=== PATIENT | male | born 1960 | race Caucasian/White ===

== ENCOUNTER 2023-11-10 21:20 | Inpatient (IN) | payer OTHER ==
[~2023-11-10] VITALS: Ht 180.3 cm; Wt 86.3 kg
[2023-11-10 21:24] VITALS: BP_SYST 128; PULSE 81; RESP 18; TEMP 98; O2SAT 95
[2023-11-10] MEDS ORDERED: PIPERACILLIN/TAZOBACTAM 3.375 GM/VIAL (ZOSYN) IV ONE (21:50)
[2023-11-10] MEDS: HYDROmorphone 1 MG/ML INJ. CARTRIDGE IVP ONE (21:51)
[2023-11-10] MEDS: NACL 0.9% 1,000 ML IV ONE (21:52)
[2023-11-10] MEDS: PIPERACILLIN/TAZO 3.375 GM in D5W 50 ML IV ONE ×2 (22:00)
[2023-11-10 22:29] LABS: BASOPHILS # (AUTO) 0.1 K/uL (0.0-0.2); BASOPHILS % (AUTO) 0.7 % (0.0-2.0); EOSINOPHILS # (AUTO) 0.5 K/uL (0.0-0.4); EOSINOPHILS % (AUTO) 4.1 % (0.0-4.0); HEMATOCRIT 36.6 % (36-54); HEMOGLOBIN 12.3 g/dL (14.0-18.0); LYMPHOCYTES # (AUTO) 2.5 K/uL (1.0-5.5); LYMPHOCYTES % (AUTO) 22.5 % (20.5-51.5); MEAN CORPUSCULAR HEMOGLOBIN 29 pg (27-31); MEAN CORPUSCULAR HGB CONC 34 % (32-36); MEAN CORPUSCULAR VOLUME 88 fL (79.0-98.0); MONOCYTES # (AUTO) 0.8 K/uL (0.0-1.0); MONOCYTES % (AUTO) 7.3 % (1.7-9.3); NEUTROPHILS # (AUTO) 7.4 K/uL (1.8-7.7); NEUTROPHILS % (AUTO) 65.4 % (40.0-70.0); PLATELET COUNT (AUTO) 312 K/uL (130-430); RED BLOOD CELL COUNT(AUTO) 4.17 MIL/uL (4.2-6.2); WHITE BLOOD COUNT (AUTO) 11.3 K/uL (4.8-10.8)
[2023-11-10 22:47] LABS: ALBUMIN 2.7 g/dL (3.4-4.8); BILIRUBIN,DIRECT 0.1 mg/dL (0.0-0.3); CALCIUM 9.3 mg/dL (8.4-11.0); CREATININE 1.02 mg/dL (0.55-1.30); POTASSIUM 4.1 mmol/L (3.5-5.1); TOTAL BILIRUBIN 0.5 mg/dL (0.0-1.0); TOTAL PROTEIN, SERUM 6.6 g/dL (6.4-8.3)
[2023-11-11] VITALS (7 sets, daily range): BP systolic 103–135; PULSE 55–86; RESP 18–22; TEMP 97.6–99; O2SAT 96–98
[2023-11-11] MEDS ORDERED: CYCL10TA24 PO (00:31)
[2023-11-11] MEDS ORDERED: ROFL500T PO (00:31)
[2023-11-11] MEDS ORDERED: SPIR25TA6 PO (00:31)
[2023-11-11] MEDS ORDERED: TAMS0.4C96 PO (00:31)
[2023-11-11] MEDS ORDERED: ONDA-8 TL (00:31)
[2023-11-11] MEDS ORDERED: CARV3.1246 PO (00:31)
[2023-11-11] MEDS ORDERED: GABA800T PO (00:31)
[2023-11-11] MEDS ORDERED: LORA-259 PO (00:31)
[2023-11-11 01:22] LABS: BILIRUBIN,URINE NEGATIVE (NEGATIVE); BLOOD, URINE NEGATIVE (NEGATIVE); CLARITY/URINE CLEAR (CLEAR); COLOR,URINE YELLOW (YELLOW); GLUCOSE,URINE NEGATIVE (NEGATIVE); KETONES,URINE NEGATIVE (NEGATIVE); LEUKOCYTE ESTERASE ,URINE NEGATIVE (NEGATIVE); NITRITE, URINE NEGATIVE (NEGATIVE); PROTEIN URINE NEGATIVE (NEGATIVE); UROBILINOGEN,URINE 0.2 (0.2-1.0)
[2023-11-11] MEDS: HYDROmorphone 1 MG/ML INJ. CARTRIDGE IVP ONE ×2 (02:47→11:56)
[2023-11-11] MEDS: NACL 0.9% 1,000 ML IV SCH (03:00)
[2023-11-11] MEDS: HYDROmorphone 1 MG/ML INJ. CARTRIDGE IVP SCH (05:41)
[2023-11-11] MEDS ORDERED: PIPERACILLIN/TAZOBACTAM 3.375 GM/VIAL (ZOSYN) IV ONE (05:47)
[2023-11-11] MEDS ORDERED: NACL 0.9% 1,000 ML IV SCH (06:00)
[2023-11-11] MEDS: PIPERACILLIN/TAZO 3.375 GM in NS 50 ML IV SCH (06:24)
[2023-11-11] MEDS ORDERED: NALOXONE HCL 0.4 MG/ML AMP (NARCAN) IVP PRN ×2 (09:00→19:15)
[2023-11-11] MEDS: HYDROmorphone 1 MG/ML INJ. CARTRIDGE ONE (09:01)
[2023-11-11] MEDS: KETOROLAC TROMETHAMINE 15 MG VIAL IVP ONE (11:25)
[2023-11-11] MEDS ORDERED: FURO-149 PO (12:59)
[2023-11-11] MEDS ORDERED: ALLO300T2 PO (12:59)
[2023-11-11] MEDS ORDERED: VITD2000 PO (13:25)
[2023-11-11] MEDS ORDERED: LACT1CAP79 PO (13:25)
[2023-11-11] MEDS ORDERED: LUBI24CA5 PO (13:25)
[2023-11-11] MEDS ORDERED: ACLI400A2 IH (13:25)
[2023-11-11] MEDS ORDERED: ALBMDI INH (13:25)
[2023-11-11] MEDS ORDERED: MECO10005 PO (13:25)
[2023-11-11] MEDS ORDERED: DOCU-144 PO (13:25)
[2023-11-11] MEDS ORDERED: PRO40 PO (13:53)
[2023-11-11] MEDS: LORazepam 2 MG/ML VIAL IVP ONE (14:39)
[2023-11-11] MEDS: LORazepam 2 MG/ML VIAL ONE (14:43)
[2023-11-11] MEDS: MICAFUNGIN SODIUM 100 MG in NS 100 ML IV SCH (18:10)
[2023-11-11] MEDS: HYDROmorphone 1 MG/ML INJ. CARTRIDGE IVP PRN (18:25)
[2023-11-11] MEDS: LUBIPROSTONE 24 MCG CAPSULE PO SCH (20:15)
[2023-11-11] MEDS: DOCUSATE SODIUM 100 MG CAPSULE PO SCH (20:15)
[2023-11-11] MEDS: CHOLECALCIFEROL (VITAMIN D3) 2,000 UNIT TABLET PO SCH (20:16)
[2023-11-11] MEDS: CARVEDILOL 3.125 MG TABLET (COREG) PO SCH (20:16)
[2023-11-11] MEDS: ZOLPIDEM TARTRATE 5 MG TABLET PO SCH (20:16)
[2023-11-11] MEDS: GABAPENTIN 400 MG CAPSULE PO SCH (20:16)
[2023-11-11] MEDS: LORazepam 1 MG TABLET PO SCH (20:16)
[2023-11-11] MEDS: FUROSEMIDE 40 MG TABLET PO SCH (20:17)
[2023-11-11] MEDS: NYSTATIN 15 GM TOPICAL POWDER TP SCH (20:24)
[2023-11-11] MEDS: ceFAZolin SODIUM 2 GM in D5W 100 ML IV SCH (21:10)
[2023-11-11] MEDS: FLUoxetine HCL 10 MG CAPSULE (PROzac) PO ONE (21:10)
[2023-11-12] VITALS (8 sets, daily range): BP systolic 98–121; PULSE 73–87; RESP 16–22; TEMP 97.4–98.8; O2SAT 95–99
[2023-11-12] MEDS: ONDANSETRON 4 MG ODT TAB TL PRN (00:31)
[2023-11-12 06:39] LABS: BASOPHILS % (AUTO) 0.3 % (0.0-2.0); EOSINOPHILS # (AUTO) 0.5 K/uL (0.0-0.4); EOSINOPHILS % (AUTO) 4.3 % (0.0-4.0); HEMATOCRIT 38.7 % (36-54); HEMOGLOBIN 12.9 g/dL (14.0-18.0); LYMPHOCYTES # (AUTO) 1.7 K/uL (1.0-5.5); LYMPHOCYTES % (AUTO) 15.3 % (20.5-51.5); MEAN CORPUSCULAR HEMOGLOBIN 29 pg (27-31); MEAN CORPUSCULAR HGB CONC 33 % (32-36); MEAN CORPUSCULAR VOLUME 88 fL (79.0-98.0); MONOCYTES # (AUTO) 0.8 K/uL (0.0-1.0); MONOCYTES % (AUTO) 7.6 % (1.7-9.3); NEUTROPHILS # (AUTO) 7.9 K/uL (1.8-7.7); NEUTROPHILS % (AUTO) 72.5 % (40.0-70.0); PLATELET COUNT (AUTO) 277 K/uL (130-430); RED BLOOD CELL COUNT(AUTO) 4.39 MIL/uL (4.2-6.2); RED CELL DISTRIBUTION WIDTH 15.3 % (9.0-15.0); WHITE BLOOD COUNT (AUTO) 10.9 K/uL (4.8-10.8)
[2023-11-12 06:54] LABS: CALCIUM 9.3 mg/dL (8.4-11.0); CREATININE 0.75 mg/dL (0.55-1.30); POTASSIUM 3.5 mmol/L (3.5-5.1)
[2023-11-12 07:07] LABS: PROTHROMBIN TIME 10.6 SECS (9.5-12.5)
[2023-11-12] MEDS: ALLOPURINOL 300 MG TABLET (ZYLOPRIM) PO SCH (08:08)
[2023-11-12] MEDS: SPIRONOLACTONE 25 MG TABLET (ALDACTONE) PO SCH (08:11)
[2023-11-12] MEDS: TAMSULOSIN HCL 0.4 MG CAP PO SCH (08:12)
[2023-11-12] MEDS: HYDROmorphone 1 MG/ML INJ. CARTRIDGE IM PRN (08:12)
[2023-11-12] MEDS: FLUoxetine HCL 10 MG CAPSULE (PROzac) PO SCH (08:12)
[2023-11-12] MEDS: PANTOPRAZOLE SODIUM 40 MG TAB PO SCH (08:15)
[2023-11-12] MEDS: CYCLOBENZAPRINE HCL 10 MG TABLET (FLEXERIL) PO PRN (08:15)
[2023-11-12] MEDS: ALBUTEROL MDI INHALATION 8 GM INH INH PRN (08:16)
[2023-11-12] MEDS ORDERED: ALBUTEROL SULFATE 0.083% 2.5 MG/3 ML VIAL.NEB INH PRN (10:30)
[2023-11-12] MEDS: MORPHINE SULFATE 30 MG TABLET.SA PO SCH (17:00)
[2023-11-12] MEDS: HYDROmorphone 1 MG/ML INJ. CARTRIDGE IVP ONE (17:27)
[2023-11-12] MEDS: HYDROmorphone 2 MG/ML VIAL IVP PRN (21:13)
[2023-11-13] VITALS (7 sets, daily range): BP systolic 100–128; PULSE 64–80; RESP 16–18; TEMP 97.5–98.4; O2SAT 64–96
[2023-11-13] MEDS: HYDROmorphone 2 MG/ML VIAL ONE (10:02)
[2023-11-13] MEDS ORDERED: BUPIVACAINE /PF 0.25% 30 ML VIAL INJ ONE (10:55)
[2023-11-13] MEDS ORDERED: PROPOFOL 200MG/ 20ML VIAL (DIPRIVAN) IV ONE (10:55)
[2023-11-13] MEDS ORDERED: SEVOFLURANE 15 MIN GAS INH ONE (10:55)
[2023-11-13] MEDS ORDERED: GLYCOPYRROLATE 0.2 MG/ML VIAL ONE (10:55)
[2023-11-13] MEDS ORDERED: LR 1,000 ML IV.SOLN IV ONE (10:55)
[2023-11-13] MEDS ORDERED: NS IRRIG SOLN 1000 ML IR ONE (10:55)
[2023-11-13] MEDS ORDERED: METOCLOPRAMIDE HCL 10 MG/2 ML VIAL ONE (10:55)
[2023-11-13] MEDS ORDERED: LIDOCAINE 1% 10 MG/ML, 20 ML MDV ONE (10:55)
[2023-11-13] MEDS ORDERED: ONDANSETRON HCL 4 MG/2 ML VIAL ONE (10:55)
[2023-11-13] MEDS ORDERED: WATER FOR IRRIGATION,STERILE 1,000 ML IRRIG.SOLN IR ONE (10:55)
[2023-11-13] MEDS ORDERED: HYDROmorphone 1 MG/ML INJ. CARTRIDGE IVP PRN ×3 (11:00)
[2023-11-13] MEDS ORDERED: NALOXONE HCL 0.4 MG/ML AMP (NARCAN) IVP PRN ×3 (11:00)
[2023-11-13] MEDS ORDERED: KETOROLAC TROMETHAMINE 30 MG VIAL IM PRN ×2 (11:00)
[2023-11-13] MEDS: ONDANSETRON HCL 4 MG/2 ML VIAL IVP ONE (11:00)
[2023-11-13] MEDS: HYDROmorphone 1 MG/ML INJ. CARTRIDGE ONE ×2 (11:12→11:47)
[2023-11-13] MEDS: KETOROLAC TROMETHAMINE 30 MG VIAL ONE (12:03)
[2023-11-14 00:05] VITALS: BP_SYST 112; PULSE 68; RESP 18; TEMP 97.9; O2SAT 98
[2023-11-14 06:32] LABS: BASOPHILS # (AUTO) 0.1 K/uL (0.0-0.2); BASOPHILS % (AUTO) 0.8 % (0.0-2.0); EOSINOPHILS # (AUTO) 0.6 K/uL (0.0-0.4); EOSINOPHILS % (AUTO) 6.4 % (0.0-4.0); HEMATOCRIT 40.1 % (36-54); HEMOGLOBIN 13.3 g/dL (14.0-18.0); LYMPHOCYTES # (AUTO) 2.2 K/uL (1.0-5.5); LYMPHOCYTES % (AUTO) 24.8 % (20.5-51.5); MEAN CORPUSCULAR HEMOGLOBIN 29 pg (27-31); MEAN CORPUSCULAR HGB CONC 33 % (32-36); MEAN CORPUSCULAR VOLUME 89 fL (79.0-98.0); MONOCYTES # (AUTO) 0.7 K/uL (0.0-1.0); MONOCYTES % (AUTO) 7.2 % (1.7-9.3); NEUTROPHILS # (AUTO) 5.5 K/uL (1.8-7.7); NEUTROPHILS % (AUTO) 60.8 % (40.0-70.0); PLATELET COUNT (AUTO) 276 K/uL (130-430); RED BLOOD CELL COUNT(AUTO) 4.52 MIL/uL (4.2-6.2); RED CELL DISTRIBUTION WIDTH 14.8 % (9.0-15.0)
[2023-11-14 06:46] LABS: CALCIUM 9.6 mg/dL (8.4-11.0); CREATININE 0.88 mg/dL (0.55-1.30); POTASSIUM 3.9 mmol/L (3.5-5.1)
[2023-11-14 07:34] LABS: ERYTHROCYTE SEDIMENTATION RATE 47 MM/HR (0-15)
[2023-11-14 07:50] VITALS: BP_SYST 95; PULSE 66; RESP 17; TEMP 97.4; O2SAT 97
[2023-11-14 09:45] VITALS: O2SAT 97
[2023-11-14] MEDS ORDERED: NALOXONE HCL 0.4 MG/ML AMP (NARCAN) IVP PRN (11:45)
[2023-11-14] MEDS ORDERED: ACETAMINOPHEN 325 MG TABLET PO PRN (12:00)
[2023-11-14 12:08] VITALS: BP_SYST 121; PULSE 83; RESP 19; TEMP 98.3; O2SAT 96
[2023-11-14] MEDS: NORMAL SALINE 5 ML DISP.SYRIN IVF SCH (14:34)
[2023-11-14] MEDS: OXYCODONE/ACETAMINOPHEN 5-325 TABLET PO PRN (16:04)
[2023-11-14 16:19] VITALS: BP_SYST 100; PULSE 80; RESP 17; TEMP 97.9; O2SAT 97
[2023-11-15 00:03] VITALS: BP_SYST 107; PULSE 66; RESP 18; TEMP 97.8; O2SAT 96
[2023-11-15 07:39] LABS: BASOPHILS # (AUTO) 0.1 K/uL (0.0-0.2); BASOPHILS % (AUTO) 0.8 % (0.0-2.0); EOSINOPHILS # (AUTO) 0.5 K/uL (0.0-0.4); EOSINOPHILS % (AUTO) 5.9 % (0.0-4.0); HEMATOCRIT 38.3 % (36-54); HEMOGLOBIN 12.9 g/dL (14.0-18.0); LYMPHOCYTES # (AUTO) 2.2 K/uL (1.0-5.5); LYMPHOCYTES % (AUTO) 24.4 % (20.5-51.5); MEAN CORPUSCULAR HEMOGLOBIN 29 pg (27-31); MEAN CORPUSCULAR HGB CONC 34 % (32-36); MEAN CORPUSCULAR VOLUME 87 fL (79.0-98.0); MONOCYTES # (AUTO) 0.6 K/uL (0.0-1.0); MONOCYTES % (AUTO) 7.1 % (1.7-9.3); NEUTROPHILS # (AUTO) 5.5 K/uL (1.8-7.7); NEUTROPHILS % (AUTO) 61.8 % (40.0-70.0); PLATELET COUNT (AUTO) 263 K/uL (130-430); RED BLOOD CELL COUNT(AUTO) 4.39 MIL/uL (4.2-6.2); RED CELL DISTRIBUTION WIDTH 14.9 % (9.0-15.0); WHITE BLOOD COUNT (AUTO) 8.9 K/uL (4.8-10.8)
[2023-11-15 07:46] LABS: ERYTHROCYTE SEDIMENTATION RATE 30 MM/HR (0-15)
[2023-11-15 08:00] VITALS: PULSE 68; O2SAT 96
[2023-11-15 08:05] VITALS: BP_SYST 104; RESP 20; TEMP 97.7; O2SAT 100
[2023-11-15 08:14] LABS: ALBUMIN 2.6 g/dL (3.4-4.8); CALCIUM 9.5 mg/dL (8.4-11.0); CREATININE 0.8 mg/dL (0.55-1.30); POTASSIUM 3.7 mmol/L (3.5-5.1); TOTAL BILIRUBIN 0.4 mg/dL (0.0-1.0); TOTAL PROTEIN, SERUM 6.5 g/dL (6.4-8.3)
[2023-11-15 11:28] VITALS: BP_SYST 107; PULSE 66; RESP 16; TEMP 97.4; O2SAT 94
[2023-11-15 15:03] VITALS: BP_SYST 101; PULSE 72; RESP 16; TEMP 97.2; O2SAT 97
[2023-11-15] MEDS: metroNIDAZOLE 500 MG TABLET PO ONE (16:47)
[2023-11-15 20:02] VITALS: BP_SYST 112; PULSE 57; RESP 18; TEMP 98.6; O2SAT 97
[2023-11-15] MEDS: metroNIDAZOLE 500 MG TABLET PO SCH (21:07)
[2023-11-16 00:10] VITALS: BP_SYST 108
[2023-11-16 08:00] VITALS: BP_SYST 112; PULSE 62; RESP 18; TEMP 97.5; O2SAT 98
[2023-11-16 08:21] LABS: BASOPHILS # (AUTO) 0.1 K/uL (0.0-0.2); BASOPHILS % (AUTO) 0.8 % (0.0-2.0); EOSINOPHILS # (AUTO) 0.5 K/uL (0.0-0.4); EOSINOPHILS % (AUTO) 5.3 % (0.0-4.0); HEMATOCRIT 42.4 % (36-54); HEMOGLOBIN 13.7 g/dL (14.0-18.0); LYMPHOCYTES # (AUTO) 2.6 K/uL (1.0-5.5); MEAN CORPUSCULAR HEMOGLOBIN 29 pg (27-31); MEAN CORPUSCULAR HGB CONC 32 % (32-36); MEAN CORPUSCULAR VOLUME 89 fL (79.0-98.0); MONOCYTES # (AUTO) 0.7 K/uL (0.0-1.0); MONOCYTES % (AUTO) 7.1 % (1.7-9.3); NEUTROPHILS # (AUTO) 6.1 K/uL (1.8-7.7); NEUTROPHILS % (AUTO) 60.8 % (40.0-70.0); PLATELET COUNT (AUTO) 297 K/uL (130-430); RED BLOOD CELL COUNT(AUTO) 4.74 MIL/uL (4.2-6.2); WHITE BLOOD COUNT (AUTO) 10.1 K/uL (4.8-10.8)
[2023-11-16 08:51] LABS: CALCIUM 9.9 mg/dL (8.4-11.0); CREATININE 1.05 mg/dL (0.55-1.30); POTASSIUM 4.1 mmol/L (3.5-5.1)
[2023-11-16] MEDS ORDERED: CIPR500T5 PO (09:36)
[2023-11-16] MEDS ORDERED: METR-154 PO (09:36)
[2023-11-16 13:17] VITALS: BP_SYST 109; PULSE 62; RESP 16; TEMP 98.6; O2SAT 96
[2023-11-16 20:02] VITALS: BP_SYST 110; PULSE 64; RESP 19; TEMP 97.4; O2SAT 94
[2023-11-17 01:23] VITALS: BP_SYST 99; PULSE 64; RESP 18; TEMP 98.4; O2SAT 96
[2023-11-17 08:04] VITALS: O2SAT 97
[2023-11-17 09:45] VITALS: O2SAT 97
[2023-11-17] MEDS ORDERED: LINE600T12 PO (12:29)
[2023-11-17 12:41] VITALS: BP_SYST 109; PULSE 76; RESP 16; TEMP 98.2; O2SAT 97
[2023-11-17 16:30] VITALS: BP_SYST 128; PULSE 64; RESP 18; TEMP 97.1; O2SAT 98
[2023-11-17] MEDS: LINEZOLID 600 MG TABLET PO SCH (20:59)
[2023-11-18 01:47] VITALS: PULSE 71; RESP 18; TEMP 97.6; O2SAT 96
[2023-11-18 07:57] VITALS: BP_SYST 109; PULSE 67; RESP 18; TEMP 97.9; O2SAT 98
[2023-11-18 12:10] VITALS: BP_SYST 101; PULSE 59; RESP 14; TEMP 98.2; O2SAT 98
[2023-11-18 15:07] VITALS: BP_SYST 101; PULSE 59; O2SAT 98
[2023-11-18 17:23] VITALS: BP_SYST 107; PULSE 80; RESP 16; TEMP 98.2; O2SAT 97
[2023-11-18 20:00] VITALS: BP_SYST 112; PULSE 70; RESP 16; TEMP 96.9; O2SAT 95
[2023-11-19 00:55] VITALS: BP_SYST 122; PULSE 69; RESP 17; TEMP 97.7; O2SAT 96
[2023-11-19 07:56] VITALS: BP_SYST 110; PULSE 62; RESP 18; TEMP 97.5; O2SAT 95
[2023-11-19 08:00] VITALS: O2SAT 95
[2023-11-19 12:00] VITALS: BP_SYST 95; PULSE 79; RESP 18; TEMP 97.9; O2SAT 94
[2023-11-19 16:00] VITALS: BP_SYST 103; PULSE 82; RESP 18; TEMP 97.9; O2SAT 95
[2023-11-19 20:11] VITALS: BP_SYST 140; PULSE 70; RESP 18; TEMP 98; O2SAT 98
[2023-11-20] VITALS (7 sets, daily range): BP systolic 102–132; PULSE 65–79; RESP 14–18; TEMP 97.2–97.8; O2SAT 95–99
[2023-11-20 06:20] LABS: BASOPHILS # (AUTO) 0.1 K/uL (0.0-0.2); BASOPHILS % (AUTO) 0.7 % (0.0-2.0); EOSINOPHILS # (AUTO) 0.4 K/uL (0.0-0.4); EOSINOPHILS % (AUTO) 2.9 % (0.0-4.0); HEMATOCRIT 45.4 % (36-54); HEMOGLOBIN 15.1 g/dL (14.0-18.0); LYMPHOCYTES # (AUTO) 2.9 K/uL (1.0-5.5); MEAN CORPUSCULAR HEMOGLOBIN 29 pg (27-31); MEAN CORPUSCULAR HGB CONC 33 % (32-36); MEAN CORPUSCULAR VOLUME 87 fL (79.0-98.0); MONOCYTES # (AUTO) 0.8 K/uL (0.0-1.0); MONOCYTES % (AUTO) 5.9 % (1.7-9.3); NEUTROPHILS % (AUTO) 68.5 % (40.0-70.0); PLATELET COUNT (AUTO) 334 K/uL (130-430); RED BLOOD CELL COUNT(AUTO) 5.22 MIL/uL (4.2-6.2); RED CELL DISTRIBUTION WIDTH 14.8 % (9.0-15.0); WHITE BLOOD COUNT (AUTO) 13.1 K/uL (4.8-10.8)
[2023-11-20 06:50] LABS: CALCIUM 10.2 mg/dL (8.4-11.0); CREATININE 0.85 mg/dL (0.55-1.30); POTASSIUM 3.5 mmol/L (3.5-5.1)
[2023-11-21] VITALS: BP_SYST 107; PULSE 73; RESP 18; TEMP 98.2; O2SAT 97
[2023-11-21 06:26] LABS: BASOPHILS # (AUTO) 0.1 K/uL (0.0-0.2); BASOPHILS % (AUTO) 0.5 % (0.0-2.0); EOSINOPHILS # (AUTO) 0.4 K/uL (0.0-0.4); EOSINOPHILS % (AUTO) 2.4 % (0.0-4.0); HEMATOCRIT 46.8 % (36-54); HEMOGLOBIN 15.7 g/dL (14.0-18.0); LYMPHOCYTES # (AUTO) 2.2 K/uL (1.0-5.5); MEAN CORPUSCULAR HEMOGLOBIN 29 pg (27-31); MEAN CORPUSCULAR HGB CONC 34 % (32-36); MEAN CORPUSCULAR VOLUME 88 fL (79.0-98.0); MONOCYTES # (AUTO) 0.9 K/uL (0.0-1.0); MONOCYTES % (AUTO) 5.5 % (1.7-9.3); NEUTROPHILS # (AUTO) 12.4 K/uL (1.8-7.7); NEUTROPHILS % (AUTO) 77.6 % (40.0-70.0); PLATELET COUNT (AUTO) 362 K/uL (130-430); RED BLOOD CELL COUNT(AUTO) 5.34 MIL/uL (4.2-6.2); RED CELL DISTRIBUTION WIDTH 14.5 % (9.0-15.0)
[2023-11-21 06:47] LABS: CALCIUM 10.6 mg/dL (8.4-11.0); CREATININE 0.9 mg/dL (0.55-1.30); POTASSIUM 3.7 mmol/L (3.5-5.1)
[2023-11-21 08:00] VITALS: BP_SYST 116; PULSE 88; RESP 18; TEMP 97.3; O2SAT 95
[2023-11-21] MEDS: LACTOBACILLUS RHAMNOSUS GG 1 CAP CAPSULE PO ONE (12:17)
[2023-11-21 12:33] VITALS: BP_SYST 111; PULSE 60; RESP 16; TEMP 98.1; O2SAT 96
[2023-11-21] MEDS: VANCOMYCIN HCL ORAL SOLUTION 25 MG/ML, 150 ML PO SCH (14:23)
[2023-11-21 15:22] VITALS: BP_SYST 117; PULSE 65; RESP 16; TEMP 98.1; O2SAT 95
[2023-11-21 17:06] VITALS: O2SAT 95
[2023-11-21 20:00] VITALS: BP_SYST 113; PULSE 71; RESP 18; TEMP 97.5; O2SAT 97
[2023-11-22] VITALS: BP_SYST 114; PULSE 75; RESP 18; TEMP 96.5; O2SAT 96
[2023-11-22] MEDS: HYDROcodone/ACETAMIN 5-325 MG TAB (NORCO/ VICODIN) PO PRN (01:03)
[2023-11-22] MEDS: HYDROmorphone 2 MG/ML VIAL IVP PRN (06:15)
[2023-11-22 07:39] LABS: BASOPHILS % (AUTO) 0.4 % (0.0-2.0); EOSINOPHILS # (AUTO) 0.6 K/uL (0.0-0.4); EOSINOPHILS % (AUTO) 4.6 % (0.0-4.0); HEMATOCRIT 44.8 % (36-54); HEMOGLOBIN 14.9 g/dL (14.0-18.0); LYMPHOCYTES # (AUTO) 2.8 K/uL (1.0-5.5); LYMPHOCYTES % (AUTO) 23.1 % (20.5-51.5); MEAN CORPUSCULAR HEMOGLOBIN 29 pg (27-31); MEAN CORPUSCULAR HGB CONC 33 % (32-36); MEAN CORPUSCULAR VOLUME 88 fL (79.0-98.0); MONOCYTES # (AUTO) 0.7 K/uL (0.0-1.0); MONOCYTES % (AUTO) 6.1 % (1.7-9.3); NEUTROPHILS # (AUTO) 7.9 K/uL (1.8-7.7); NEUTROPHILS % (AUTO) 65.8 % (40.0-70.0); PLATELET COUNT (AUTO) 329 K/uL (130-430); RED CELL DISTRIBUTION WIDTH 14.5 % (9.0-15.0)
[2023-11-22 07:50] LABS: CALCIUM 10.4 mg/dL (8.4-11.0); CREATININE 1.03 mg/dL (0.55-1.30); POTASSIUM 3.7 mmol/L (3.5-5.1)
[2023-11-22 08:00] VITALS: BP_SYST 113; PULSE 63; RESP 17; TEMP 97.9; O2SAT 96
[2023-11-22] MEDS: LACTOBACILLUS RHAMNOSUS GG 1 CAP CAPSULE PO SCH (09:11)
[2023-11-22 09:15] VITALS: O2SAT 96
[2023-11-22 12:05] VITALS: BP_SYST 104; PULSE 70; RESP 18; TEMP 97.8; O2SAT 96
[2023-11-22 16:44] VITALS: BP_SYST 98; PULSE 73; RESP 21; TEMP 97.7; O2SAT 94
[2023-11-22 20:00] VITALS: BP_SYST 110; PULSE 69; RESP 20; TEMP 98.6; O2SAT 97
[2023-11-22] MEDS: ANTIFUNGAL CLEAR OINTMENT TP SCH (21:00)
[2023-11-23] VITALS (7 sets, daily range): BP systolic 106–117; PULSE 58–72; RESP 14–18; TEMP 97.8–98.7; O2SAT 96–99
[2023-11-23 08:22] LABS: BASOPHILS % (AUTO) 0.4 % (0.0-2.0); EOSINOPHILS # (AUTO) 0.1 K/uL (0.0-0.4); EOSINOPHILS % (AUTO) 0.6 % (0.0-4.0); HEMATOCRIT 44.6 % (36-54); HEMOGLOBIN 14.9 g/dL (14.0-18.0); LYMPHOCYTES # (AUTO) 1.7 K/uL (1.0-5.5); LYMPHOCYTES % (AUTO) 16.7 % (20.5-51.5); MEAN CORPUSCULAR HEMOGLOBIN 29 pg (27-31); MEAN CORPUSCULAR HGB CONC 33 % (32-36); MEAN CORPUSCULAR VOLUME 88 fL (79.0-98.0); MONOCYTES # (AUTO) 0.2 K/uL (0.0-1.0); MONOCYTES % (AUTO) 2.3 % (1.7-9.3); NEUTROPHILS # (AUTO) 7.9 K/uL (1.8-7.7); PLATELET COUNT (AUTO) 320 K/uL (130-430); RED BLOOD CELL COUNT(AUTO) 5.08 MIL/uL (4.2-6.2); RED CELL DISTRIBUTION WIDTH 14.5 % (9.0-15.0); WHITE BLOOD COUNT (AUTO) 9.9 K/uL (4.8-10.8)
[2023-11-23 08:41] LABS: CALCIUM 10.3 mg/dL (8.4-11.0); POTASSIUM 4.7 mmol/L (3.5-5.1)
[2023-11-23] MEDS: metroNIDAZOLE 500 MG TABLET PO SCH (20:16)
[2023-11-24 00:09] VITALS: BP_SYST 116; PULSE 70; RESP 18; TEMP 98.8; O2SAT 96
[2023-11-24 07:20] VITALS: PULSE 77; O2SAT 96
[2023-11-24 08:00] VITALS: O2SAT 97
[2023-11-24 13:06] VITALS: BP_SYST 108; PULSE 65; RESP 19; TEMP 97.7; O2SAT 98
[2023-11-24 17:17] VITALS: BP_SYST 116; PULSE 66; RESP 19; TEMP 98.1; O2SAT 95
[2023-11-24 20:00] VITALS: O2SAT 94
[2023-11-25 00:43] VITALS: BP_SYST 127; PULSE 56; RESP 16; TEMP 97.4; O2SAT 98
[2023-11-25 08:00] VITALS: O2SAT 97
[2023-11-25 08:44] LABS: BASOPHILS # (AUTO) 0.1 K/uL (0.0-0.2); BASOPHILS % (AUTO) 0.8 % (0.0-2.0); EOSINOPHILS # (AUTO) 0.4 K/uL (0.0-0.4); EOSINOPHILS % (AUTO) 4.2 % (0.0-4.0); HEMATOCRIT 44.5 % (36-54); HEMOGLOBIN 14.3 g/dL (14.0-18.0); LYMPHOCYTES # (AUTO) 2.5 K/uL (1.0-5.5); LYMPHOCYTES % (AUTO) 25.8 % (20.5-51.5); MEAN CORPUSCULAR HEMOGLOBIN 29 pg (27-31); MEAN CORPUSCULAR HGB CONC 32 % (32-36); MEAN CORPUSCULAR VOLUME 89 fL (79.0-98.0); MONOCYTES # (AUTO) 0.6 K/uL (0.0-1.0); MONOCYTES % (AUTO) 6.1 % (1.7-9.3); NEUTROPHILS # (AUTO) 6.1 K/uL (1.8-7.7); NEUTROPHILS % (AUTO) 63.1 % (40.0-70.0); PLATELET COUNT (AUTO) 291 K/uL (130-430); RED BLOOD CELL COUNT(AUTO) 5.02 MIL/uL (4.2-6.2); RED CELL DISTRIBUTION WIDTH 14.6 % (9.0-15.0); WHITE BLOOD COUNT (AUTO) 9.6 K/uL (4.8-10.8)
[2023-11-25 08:53] LABS: CALCIUM 10.5 mg/dL (8.4-11.0); CREATININE 0.97 mg/dL (0.55-1.30); POTASSIUM 3.8 mmol/L (3.5-5.1)
[2023-11-25] MEDS: ACETAMINOPHEN 325 MG TABLET PO PRN (09:47)
[2023-11-25] MEDS: CLOTRIMAZOLE 1% TOPICAL CREAM 15 GM TP SCH (10:45)
[2023-11-25 11:02] VITALS: BP_SYST 106; PULSE 71; RESP 18; TEMP 98.1; O2SAT 100
[2023-11-25 16:16] VITALS: BP_SYST 101; PULSE 70; RESP 18; TEMP 98.1; O2SAT 100
[2023-11-25] MEDS: LORazepam 1 MG TABLET PO PRN (17:58)
[2023-11-25 21:00] VITALS: BP_SYST 121; PULSE 65; RESP 16; TEMP 96.9; O2SAT 96
[2023-11-26] VITALS (7 sets, daily range): BP systolic 109–129; PULSE 60–82; RESP 16; TEMP 97.7–98.9; O2SAT 97–98
[2023-11-26] MEDS ORDERED: HYDROmorphone 2 MG/ML VIAL IVP ONE (11:15)
[2023-11-26] MEDS: HYDROmorphone 2 MG/ML VIAL IVP ONE (11:36)
[2023-11-27] VITALS (10 sets, daily range): BP systolic 96–132; PULSE 63–87; RESP 12–19; TEMP 97.5–98.2; O2SAT 93–98
[2023-11-28] VITALS (7 sets, daily range): BP systolic 100–114; PULSE 60–96; RESP 14–18; TEMP 96.6–99.1; O2SAT 93–97
[2023-11-28 06:50] LABS: BASOPHILS # (AUTO) 0.1 K/uL (0.0-0.2); BASOPHILS % (AUTO) 0.6 % (0.0-2.0); EOSINOPHILS # (AUTO) 0.7 K/uL (0.0-0.4); EOSINOPHILS % (AUTO) 7.2 % (0.0-4.0); HEMATOCRIT 42.6 % (36-54); HEMOGLOBIN 14.2 g/dL (14.0-18.0); LYMPHOCYTES # (AUTO) 3.1 K/uL (1.0-5.5); LYMPHOCYTES % (AUTO) 30.1 % (20.5-51.5); MEAN CORPUSCULAR HEMOGLOBIN 29 pg (27-31); MEAN CORPUSCULAR HGB CONC 34 % (32-36); MEAN CORPUSCULAR VOLUME 88 fL (79.0-98.0); MONOCYTES # (AUTO) 0.8 K/uL (0.0-1.0); NEUTROPHILS # (AUTO) 5.5 K/uL (1.8-7.7); NEUTROPHILS % (AUTO) 54.1 % (40.0-70.0); PLATELET COUNT (AUTO) 251 K/uL (130-430); RED BLOOD CELL COUNT(AUTO) 4.85 MIL/uL (4.2-6.2); RED CELL DISTRIBUTION WIDTH 14.5 % (9.0-15.0); WHITE BLOOD COUNT (AUTO) 10.2 K/uL (4.8-10.8)
[2023-11-28 06:51] LABS: CALCIUM 10.1 mg/dL (8.4-11.0); CREATININE 0.8 mg/dL (0.55-1.30); POTASSIUM 4.1 mmol/L (3.5-5.1)
[2023-11-29 00:03] VITALS: BP_SYST 115; PULSE 68; RESP 17; TEMP 97.5; O2SAT 95
[2023-11-29 07:30] LABS: BASOPHILS # (AUTO) 0.1 K/uL (0.0-0.2); BASOPHILS % (AUTO) 0.7 % (0.0-2.0); EOSINOPHILS # (AUTO) 0.6 K/uL (0.0-0.4); EOSINOPHILS % (AUTO) 6.8 % (0.0-4.0); HEMOGLOBIN 13.4 g/dL (14.0-18.0); LYMPHOCYTES # (AUTO) 2.6 K/uL (1.0-5.5); LYMPHOCYTES % (AUTO) 27.9 % (20.5-51.5); MEAN CORPUSCULAR HEMOGLOBIN 29 pg (27-31); MEAN CORPUSCULAR HGB CONC 34 % (32-36); MEAN CORPUSCULAR VOLUME 87 fL (79.0-98.0); MONOCYTES # (AUTO) 0.7 K/uL (0.0-1.0); MONOCYTES % (AUTO) 7.5 % (1.7-9.3); NEUTROPHILS # (AUTO) 5.3 K/uL (1.8-7.7); NEUTROPHILS % (AUTO) 57.1 % (40.0-70.0); PLATELET COUNT (AUTO) 232 K/uL (130-430); RED BLOOD CELL COUNT(AUTO) 4.61 MIL/uL (4.2-6.2); RED CELL DISTRIBUTION WIDTH 14.3 % (9.0-15.0); WHITE BLOOD COUNT (AUTO) 9.4 K/uL (4.8-10.8)
[2023-11-29 07:50] LABS: ALBUMIN 2.9 g/dL (3.4-4.8); CALCIUM 9.9 mg/dL (8.4-11.0); CREATININE 0.92 mg/dL (0.55-1.30); POTASSIUM 3.4 mmol/L (3.5-5.1); TOTAL BILIRUBIN 0.5 mg/dL (0.0-1.0); TOTAL PROTEIN, SERUM 6.5 g/dL (6.4-8.3)
[2023-11-29 08:33] VITALS: BP_SYST 111; PULSE 65; RESP 20; TEMP 97.7; O2SAT 96
[2023-11-29 09:05] VITALS: O2SAT 96
[2023-11-29] MEDS: POTASSIUM CHLORIDE 20 MEQ TABLET.ER PO ONE (13:41)
[2023-11-29 16:30] VITALS: BP_SYST 112; PULSE 83; RESP 20; TEMP 97.9; O2SAT 95
[2023-11-29 20:00] VITALS: O2SAT 98
[2023-11-29 20:20] VITALS: BP_SYST 108; PULSE 68; RESP 18; TEMP 97.8; O2SAT 96
[2023-11-29] MEDS: traMADol HCL HCL 50 MG TABLET (ULTRAM) PO PRN (23:09)
[2023-11-30] VITALS: BP_SYST 105; PULSE 67; RESP 18; TEMP 98; O2SAT 98
[2023-11-30 07:47] VITALS: O2SAT 98
[2023-11-30] MEDS ORDERED: PEG 400/HYPROMELLOSE/GLYCERIN 15 ML DROPS OP PRN (11:45)
[2023-11-30 11:55] VITALS: BP_SYST 108; PULSE 75; RESP 18; TEMP 98.2; O2SAT 96
[2023-11-30] MEDS: LORazepam 1 MG TABLET PO PRN (12:34)
[2023-11-30 17:34] VITALS: BP_SYST 115; PULSE 92; RESP 18; TEMP 98.4; O2SAT 97
[2023-11-30 18:10] VITALS: BP_SYST 115; PULSE 92; O2SAT 97
[2023-11-30] MEDS ORDERED: HYDROcodone/ACETAMIN 10-325 MG TAB PO PRN (21:00)
[2023-11-30] MEDS: HYDROcodone/ACETAMIN 10-325 MG TAB PO PRN (21:31)
[2023-11-30] MEDS: KETOROLAC TROMETHAMINE 15 MG VIAL IVP ONE (22:15)
[2023-11-30] MEDS: KETOROLAC TROMETHAMINE 15 MG VIAL ONE (22:16)
[2023-12-01 08:10] VITALS: BP_SYST 109; PULSE 90; RESP 18; TEMP 97.6; O2SAT 97
[2023-12-01 09:50] VITALS: O2SAT 97
[2023-12-01 10:48] VITALS: BP_SYST 110; PULSE 88; RESP 18; TEMP 97.8; O2SAT 97
[2023-12-01] MEDS ORDERED: Clotrimazole TP (11:31)
[2023-12-01] MEDS ORDERED: PERC10 PO (11:31)
[2023-12-01] MEDS ORDERED: METH-797 PO (11:31)
[2023-12-01] MEDS ORDERED: TRAM50TA2 PO (11:31)
[2023-12-01 13:31] VITALS: BP_SYST 111; PULSE 104; RESP 20; TEMP 98.1; O2SAT 97
== END 2023-12-01 13:15 | disposition home health service (06) | DRG 570 ==
LOC: SED 21:20 → SMU 11-11 00:18
PROVIDERS: ADMIT Specialist; ATTEND Specialist
PROC: 0JBB0ZZ Excision of Perineum Subcutaneous Tissue and Fascia, Open Approach (ICD-10-PCS; principal; 2023-11-13 09:59)
DX: L03.315 Cellulitis of perineum (principal); E43 Unspecified severe protein-calorie malnutrition; K61.0 Anal abscess; L02.215 Cutaneous abscess of perineum; G89.4 Chronic pain syndrome; L30.4 Erythema intertrigo; D72.829 Elevated white blood cell count, unspecified; I11.0 Hypertensive heart disease with heart failure; I50.9 Heart failure, unspecified; B35.6 Tinea cruris; Z79.899 Other long term (current) drug therapy; Z88.5 Allergy status to narcotic agent; Z68.25 Body mass index [BMI] 25.0-25.9, adult
CPT/HCPCS: 36415; 71045; 80048; 80053; 80076; 81001; 81003; 83605; 85025; 85610; 85651; 85730; 86886; 86900; 86901; 87040; 87070; 87075; 87081; 87186; 87230; 94070; 94760; 97110-GP; 97116-GP; 97530-GP; 99285; A4371; A4409; A4421; A5061; A6209; C1751; J1171; J1885; J2003; J2060; J2248; J2405; J2543; J2704; J2765; J3490; J7030; J7060; J7120; Q0162; Q9967